=== PATIENT | female | born 1955 | race Caucasian/White ===

== ENCOUNTER 2024-07-18 06:03 | Inpatient (IN) | payer BC, MEDICARE, SELFPAY ==
[2024-07-18 01:10] VITALS: BP 168/84
[2024-07-18 01:36] LABS: % Basophils 0.2 % (0-2); % Eosinophils 0.1 % (0-6); % Immature Granulocytes 0.4 % (0-0.5); % Lymphocytes 7.6 % (20.5-51.1); % Monocytes 3.6 % (1.7-9.3); % Neutrophils 88.1 % (42.2-75.2); Absolute Immature Granulocytes 0.1 10^3/uL (0-0.05); Absolute Monocytes 0.5 10^3/uL (0.1-0.6); Absolute Neutrophils 11.9 10^3/uL (1.4-6.5); Hematocrit 40.8 % (37.0-47.0); Hemoglobin 14.3 g/dL (12.0-16.0); Mean Corpuscular Hgb 29.7 pg (27.0-31.0); Mean Corpuscular Volume 84.8 fL (81.0-99.0); Mean Platelet Volume 9.7 fL (7.4-10.4); Nucleated Red Blood Cells % 0 %; Platelet Count 345 10^3/uL (130-400); Red Blood Cell Count 4.81 10^6/uL (4.20-5.40); White Blood Cell Count 13.5 10^3/uL (4.8-10.8)
[2024-07-18 02:02] LABS: ALT (SGPT) 67 U/L (0-35); AST (SGOT) 106 U/L (14-36); Albumin 4.2 g/dl (3.5-5.0); Alkaline Phosphatase 123 U/L (38-126); Blood Urea Nitrogen 15 mg/dl (7-17); Calcium 10.4 mg/dl (8.4-10.2); Carbon Dioxide 26 mmol/L (22-30); Chloride 105 mmol/L (98-107); Glucose 243 mg/dl (70-99); Sodium 141 mmol/L (135-145); Total Bilirubin 0.9 mg/dl (0.2-1.3); eGFR > 60.00
[2024-07-18 02:21] LABS: Lipase > 4000 U/L (23-300)
[2024-07-18 02:46] VITALS: BMI 31.9
[2024-07-18] MEDS: MORPHINE SULFATE 4 MG IV (02:58)
[2024-07-18 03:05] VITALS: BP 149/65
[2024-07-18] MEDS: ZOFRAN 4 MG IV (03:05)
--- NOTE | 2024-07-18 03:33 | ED.GENMED ---
History of Present Illness
General
Chief Complaint: Abdominal Pain
Source: patient
Exam Limitations: none
Time Seen by Provider: 07/18/24 03:18
Nursing documentation reviewed up to this point in time: agreed with
History of Present Illness
History of Present Illness:
This is a 69-year-old woman with history of hypertension, hyperlipidemia who presents with generalized upper abdominal pain, moderate to severe in nature that began around 9 PM tonight associated with nausea, several episodes of vomiting. No
history of similar episodes in the past. She denies chest pain, no back pain, denies fever nor chills. She denies hematemesis.
She does admit to consuming 1 alcoholic drink tonight while at a graduation green party other than this reports rare alcohol consumption.
Her daily medications include telmisartan, rosuvastatin
Past History
Past History
ED Past Medical History: HTN and Hypercholesterolemia
ED Past Surgical History:
Social History
Tobacco: Non-smoker
Alcohol: Occasional (Rare alcohol use)
Drug: None
Personal:
Living: with family
Family History
Family History: Other (Noncontributory)
Phy Exam
Physical Exam
Physical Exam:
GENERAL: 69-year-old woman appears her stated age, awake and alert, appears in mild to moderate distress related to pain. Cooperative and easily communicative. is accompanying.
EYE: anicteric
NECK: Supple, nontender, no meningismus, no significant adenopathy.
ENT: oral mucosa is moist. No rhinorrhea.
CARDIAC: Regular rate and rhythm. no murmur.
LUNGS: Clear breath sounds bilaterally, no acute respiratory distress, no wheezes/rales/rhonchi
ABDOMEN: Rotund, soft, nondistended, moderate tenderness epigastric region, no r/g, no cvat. normoactive BS.
NEUROLOGICAL: Alert and oriented x3, no focal neuro deficits.
SKIN: Warm and dry, normal color, skin intact. No rash.
MUSCULOSKELETAL: No C/C/E. peripheral pulses are full and equal b/l. No palpable tenderness.
PSYCH: Normal and appropriate interaction.
Course
Orders/Labs/Results
Orders:
Orders
07/18/24 01:12
Electrocardiogram (*1) Urgent
Reason for Study: Abdominal Pain
EKG- Treatment ONCE
07/18/24 01:24
Complete Blood Count/With Diff Urgent
Comprehensive Metabolic Panel Urgent
Lipase Urgent
07/18/24 02:53
Morphine Sulfate 4 mg .ROUTE .STK-MED ONE
07/18/24 02:57
Morphine Sulfate 4 mg IV NOW STA
07/18/24 03:03
Ondansetron Injectable [Zofran] 4 mg .ROUTE .STK-MED ONE
07/18/24 03:04
Ondansetron Injectable [Zofran] 4 mg IV NOW STA
07/18/24 03:33
CT Abd/pelvis W Iv Cont Urgent
Comment:
Reason For Exam: acute gen upper abd pain, lipase >4000
07/18/24 04:45
HYDROmorphone [Dilaudid] 0.5 mg .ROUTE .STK-MED ONE
07/18/24 04:47
HYDROmorphone [Dilaudid] 0.5 mg IV NOW STA
Abnormal Lab Results
07/18/24
01:24
WBC 13.5 H 10^3/uL
(4.8-10.8)
Abs Immat Gran (auto) 0.1 H 10^3/uL
(0-0.05)
Absolute Neuts (auto) 11.9 H 10^3/uL
(1.4-6.5)
Absolute Lymphs (auto) 1.0 L 10^3/uL
(1.2-3.4)
Neutrophils % 88.1 H %
(42.2-75.2)
Lymphocytes % 7.6 L %
(20.5-51.1)
Glucose 243 H mg/dl
(70-99)
Calcium 10.4 H mg/dl
(8.4-10.2)
AST 106 H U/L
(14-36)
ALT 67 H U/L
(0-35)
Lipase > 4000 H* U/L
(23-300)
07/18/24 01:24
07/18/24 01:24
Vital Signs
Initial and Last Documented VS:
Initial Vital Signs
Temp Pulse Resp BP Pulse Ox
98 F 88 16 168/84 97
07/18/24 01:10 07/18/24 01:10 07/18/24 01:10 07/18/24 01:10 07/18/24 01:10
Last Documented Vital Signs
Temp Pulse Resp BP Pulse Ox
98 F 72 20 149/65 99
07/18/24 01:10 07/18/24 03:05 07/18/24 03:05 07/18/24 03:05 07/18/24 03:05
MDM/Problems Addressed
Differential Diagnosis Includes:
Patient presents with acute upper abdominal pain, persistent accompanied with nausea, several episodes of vomiting.
Labs are remarkable for significantly elevated lipase, greater than 4000 consistent with acute pancreatitis.
Concern for gallstone pancreatitis, unlikely alcohol related pancreatitis.
Glucose moderately elevated at 243. No prior history of diabetes nor impaired fasting glucose.
LFTs mildly elevated with normal T. bili and alkaline phosphatase.
IV fluids initiated, currently much more comfortable after an IV dose of morphine and Zofran.
Will check CT abdomen pelvis and plan to admit to hospitalist service.
*Radiology
Radiology exam reviewed: radiology read reviewed
*Pulse Oximetry
Patient hypoxic: no
*EKG
Interpreted by ED Provider?: Yes
Interpretation: normal
Comparison EKG: no comparison EKG present
Rate: normal
Rhythm: sinus
Lamy: normal axis
Interval: normal interval
QRS Pattern: normal QRS
Ischemia: no ischemia
*Critical Care Note
Total Time (30-74mins, 75-104mins- exclusive of procedures): Not Applicable
Update Note
Update Note:
05:00
CT shows acute pancreatitis as well as cholelithiasis and gallbladder distention.
There is also note of possible 2 mm gallstone lodged at the ampulla Vater. It is reassuring that T. bili and alk phos are normal.
Will continue IV fluids, pain medications, initiate IV antibiotics and will admit to hospitalist service.
ED Attending Note
-
Portions of this chart may have been created with voice recognition software.� Occasional wrong word or��sound alike� substitutions may have occurred due to the inherent limitations of voice recognition software.
Discharge Plan
Departure
Patient Disposition: Admit
Date of Disposition: 07/18/24
Time of Disposition: 05:02
Admit to: Med/Surg
Admit to doctor: Arielle
Presentation/result/management discussed w/ accepting MD/DO: Hospitalist
Discharge Problem:
Acute gallstone pancreatitis
Referrals:
Tay Bhardwaj DO [Family Provider] -
Interventions
Interventions:
*Risk Screen - Suicide Last Done: 07/18/24 01:10
*General Assessment Last Done: 07/18/24 01:10
*Neglect/Abuse Screening Last Done: 07/18/24 01:10
*ED- Fall Risk Assessment Last Done: 07/18/24 02:48
*ED COVID-19 Vaccine History Last Done: 07/18/24 02:48
MO-Mwfsqx-Tvzrquwrdy Assessment Last Done: 07/18/24 02:48
Discharge Date and Time
Print Language: VINCENTIAN
[2024-07-18] MEDS: DILAUDID 0.5 MG IV ×5 (04:47→22:10)
--- NOTE | 2024-07-18 05:38 | HPS.HSE ---
Family Physician
-
Family Physician: Tay Bhardwaj
Chief Complaint
-
Abdominal pain
History of Present Illness
This is a 69-year-old with past medical history of hypertension and hyperlipidemia who presents to the emergency department with episode of abdominal pain and vomiting that started in the evening.
Patient reports abrupt onset of abdominal pain that she states is localized to the mid epigastric region and radiates down to the lower quadrants bilaterally. She denies any radiation to the back. She denies any radiation into the chest. She
denies any hematochezia melena or hematemesis. Patient denies having any fevers. She denies any chills. She denies any urinary symptoms.
Patient denies any alcohol use. She denies any history of gallstones or gallbladder disease.
In the emergency department the patient was afebrile, blood pressure of 150/65 with a pulse of 72 and she was at 99% on room air.
CBC was 13.5, hemoglobin and platelets were normal. Electrolytes were all normal. BUN/creatinine were normal. Glucose slightly elevated at 250.
LFTs showed slight elevation of AST and ALT to 106 and 67 respectively. Total bilirubin was normal. Alk phos was normal.
Lipase was markedly elevated over 4000.
The CT of the abdomen pelvis revealed acute interstitial edematous pancreatitis without necrosis or organized fluid collection or vascular complication.
There is cholecystolithiasis and gallbladder distention with consideration for cholecystitis to be assessed by ultrasound. There is a suggestion of a 2 mm gallstone lodged in the ampulla elevated.
Medical History
Past Medical History
Past Medical History: Reports HTN and Hypercholesterolemia
Past Surgical History: Reports
Social History
Tobacco: Non-smoker
Alcohol: Occasional
Drug: None
Personal:
Living: With Family
Family History
Family History: Not pertinent
Allergies / Home Medications
Allergies reflects when Allergies were last updated in [facility].
Home Medications with original date entered in [facility]
Allergy/Medication List:
Allergies
Allergy/AdvReac Type Severity Reaction Status Date / Time
No Known Allergies Allergy Unverified 07/18/24 01:09
Telmisartan 40 mg tablet, 40 mg p.o. daily
Simvastatin 10 mg tablet, 10 mg p.o. daily
Review of Systems
-
History Source: Patient
Constitutional: Reports No Symptoms
EENT: Reports No Symptoms
Respiratory: Reports No Symptoms
Cardiac: Reports No Symptoms
Abdomen/GI: Reports Abdominal Pain
: Reports No Symptoms
Musculoskeletal: Reports No Symptoms
Skin: Reports No Symptoms
Neurological: Reports No Symptoms
Endocrine: Reports No Symptoms
Hematologic/Lymphatic: Reports No Symptoms
Psych: Reports No Symptoms
Physical Exam
Vital Signs
Vital Signs
Temp Pulse Resp BP Pulse Ox
98 F 72 20 149/65 99
07/18/24 01:10 07/18/24 03:05 07/18/24 03:05 07/18/24 03:05 07/18/24 03:05
Physical Exam
General: Well Developed and Pain
HEENT: NormoCephalic, Anicteric, Moist mucous membranes, Atraumatic and PERRLA
Respiratory: Clear
Cardiac: S1/S2 and Regular Rhythm
Breast: Deferred by me
GI: Soft, Non Distended, Normal Bowel Sounds and Tender (No rebound, no guarding)
Rectal: Deferred by Provider
Genito-urinary: Deferred by me
Musculoskeletal: No Clubbing, No Cyanosis and No Edema
Skin: Warm
Neuro: AO x 3 and Nonfocal/grossly intact
Hematologic/Lymphatic: No Lymphadenopathy
Psych: Calm
Laboratory Results
-
07/18/24 01:24
07/18/24 01:24
Laboratory Results
Total Bilirubin 0.9 mg/dl (0.2-1.3) 07/18/24 01:24
AST 106 U/L (14-36) H 07/18/24 01:24
ALT 67 U/L (0-35) H 07/18/24 01:24
Alkaline Phosphatase 123 U/L (38-126) 07/18/24 01:24
Lipase > 4000 U/L (23-300) H* 07/18/24 01:24
Data Reviewed
-
CT Scan: Report Reviewed by me
Lab Data: Labs Reviewed by me
Old Records: Reviewed
Impression/Plan
-
IMPRESSION:
69-year-old with acute onset of abdominal pain and vomiting, no fevers or chills and no urinary symptoms. Found to have acute pancreatitis with lipase greater than 4000. Imaging is consistent with acute pancreatitis without necrosis, fluid
collection or abscess formation. She does appear to have cholelithiasis as well as GB distention. There is prominent possible tumor or stone in the ampulla Vater but no ductal dilatation noted. Denies any significant alcohol use.
PLAN:
1. Acute pancreatitis - Suspected gall stone pancreatitis with gall stone at ampulla of vater. No necrosis. No fevers or chills. Mild transaminitis. Normal bilirubin. Do not suspect cholangitis but cannot rule out cholecystitis.
- admit to med/surg
- npo
- IV LR
- pain control and antiemetics
- no abx for now
- mrcp, ruq u/s
- GI consult
- Surgery consult
DVT PPX - lovenox sq
Code status - Full Code
[2024-07-18 06:04] VITALS: BP 165/79
[2024-07-18] MEDS: D5LR 1000 IV ×3 (07:05→19:06)
[2024-07-18] MEDS: TORADOL 15 MG IV ×2 (10:30→19:05)
[2024-07-18 10:54] VITALS: BP 152/71
--- NOTE | 2024-07-18 11:08 | CON.GI ---
Consultation
-
Date/Time Consultation Performed: 07/18/24
Performing Provider: Manuel Sosa MD
Reason for Consultation: pancreatitis
Medical History
Chief Complaint / HPI
Chief Complaint: Abdominal pain/vomiting
History of Present Illness:
The patient is a 69-year-old female past medical history as noted abdominal pain, nausea and vomiting. She had pain starting yesterday, in the epigastrium rating to the back, with associated nausea and vomiting. Upon presentation she was found to
have markedly elevated lipase as well as mildly elevated LFTs. Ultrasound showed multiple gallstones, CT scan showed gallstones with interstitial pancreatitis and calcification near the head of the pancreas and duodenum. She still having
epigastric discomfort, though possibly slightly better than yesterday. Denies any fever or chills. She has had some intermittent episodes of pain, though none severe like this. A couple of weeks ago she had vomiting and diarrhea though no
associated pain. Otherwise she does well with no significant GI complaints and denies any chest pain or shortness of breath.
Past Medical History
Past Medical History: Other (Hypertension, high cholesterol)
Past Surgical History: Other ()
Social History
Tobacco: Non-Smoker
Alcohol: Occasional
Family History
Family History: Reviewed & Not Pertinent
Allergies / Home Medications
Allergy/AdvReac Type Severity Reaction Status Date / Time
No Known Allergies Allergy Unverified 07/18/24 01:09
�Medication �Instructions �Recorded
rosuvastatin 10 mg tablet 10 mg PO DAILY 07/18/24
telmisartan 40 mg tablet 40 mg PO DAILY 07/18/24
Review of Systems
-
All other systems: A 12 pt ROS was Negative except as stated above in HPI
Vital Signs
Temp Pulse Resp BP Pulse Ox
97.9 F 74 16 152/71 97
07/18/24 06:04 07/18/24 10:54 07/18/24 10:54 07/18/24 10:54 07/18/24 10:54
Physical Exam
Exam
General: NAD
HEENT: MMM, anicteric, no lymphadenopathy
Heart: Regular, no murmurs
Lungs: CTA bilaterally
Abdomen: normal bowel sounds, soft, mild epigastric tenderness, no rebound or guarding, no masses, bruits or ascites
Extremeties: no edema
Skin: no rashes
Results
WBC 13.5 10^3/uL (4.8-10.8) H 07/18/24 01:24
Hgb 14.3 g/dL (12.0-16.0) 07/18/24 01:24
Hct 40.8 % (37.0-47.0) 07/18/24 01:24
MCV 84.8 fL (81.0-99.0) 07/18/24 01:24
Plt Count 345 10^3/uL (130-400) 07/18/24 01:24
Absolute Neuts (auto) 11.9 10^3/uL (1.4-6.5) H 07/18/24 01:24
Sodium 141 mmol/L (135-145) 07/18/24 01:24
Potassium 4.0 mmol/L (3.5-5.1) 07/18/24 01:24
Chloride 105 mmol/L (98-107) 07/18/24 01:24
Carbon Dioxide 26 mmol/L (22-30) 07/18/24 01:24
BUN 15 mg/dl (7-17) 07/18/24 01:24
Creatinine 0.8 mg/dL (0.6-1.0) 07/18/24 01:24
Calcium 10.4 mg/dl (8.4-10.2) H 07/18/24 01:24
Total Bilirubin 0.9 mg/dl (0.2-1.3) 07/18/24 01:24
AST 106 U/L (14-36) H 07/18/24 01:24
ALT 67 U/L (0-35) H 07/18/24 01:24
Alkaline Phosphatase 123 U/L (38-126) 07/18/24 01:24
Lipase > 4000 U/L (23-300) H* 07/18/24 01:24
Diagnostic Image Results:
CT:
IMPRESSION: Cholelithiasis.
There is dilation of the common bile duct, measuring up to 8.9 mm. 2 mm calcification near the junction of the common bile duct and the duodenum, and could represent a small common bile duct calculus.
Findings of pancreatitis with adjacent edema. No evidence for macroscopic pancreatic necrosis. No evidence for well-defined fluid collection.
Changes of emphysema in the visualized lower lungs.
Calcification of the aortic valve, with aortic valve incompletely included on the [id number] of this examination. Please correlate with any clinical signs or symptoms that would suggest clinically significant aortic stenosis.
US:
FINDINGS:
There are numerous small gallstones throughout the gallbladder. The gallbladder wall is thickened, measuring 5 mm. No evidence for pericholecystic edema, and the patient has a negative sonographic Hough's sign. There is comet-tail shadowing arising
from the anterior gallbladder wall, usually seen in association with adenomyomatosis.
No gross evidence for intrahepatic bile duct dilation. The common bile duct measures up to 7.2 mm, with top normal considered 7 mm in a 69-year-old. No sonographic evidence for bile duct calculus, but the most inferior aspect of the common bile duct
is not visualized, with shadowing from overlying bowel gas..
Liver length is 16.4 cm, with top normal considered 18.0 cm. Liver echogenicity appears normal with no evidence of a focal hepatic lesion. Main portal vein is patent with normal direction of flow.
The spleen appears normal with maximum dimension of 10.7 cm.
There is edema surrounding the pancreas as seen on earlier CT examination, compatible with pancreatitis. No evidence of a focal fluid collection.
The upper abdominal IVC and the abdominal aorta appear normal.
Survey views of both kidneys are obtained with no evidence of mass, calculus, or pelvicalyceal dilation. Right kidney length is 10.0 cm and left kidney length is 10.4 cm.
Prior GI Procedures:
EGD:
Colonoscopy:
Assessment / Plan
-
1. Pancreatitis: Secondary to gallstones. On my review of the CT scan it appears that the calcification may be at the ampulla or in the duodenum. Surprisingly her LFTs are not that significantly elevated today. At this point would continue
supportive care with aggressive IV fluids, bowel rest, pain control and trend labs. Will await MRI and if there is retained CBD stone then we will plan ERCP. Would consult surgery for eventual cholecystectomy.
-
-
Thank you for consultation and allowing me to participate in the patient's care. Please call the [facility] physician during the after hours with any questions or concerns.
--- NOTE | 2024-07-18 11:52 | W.PN.UPDATE ---
Update Note
Progress Note Update
H&P performed at 0538 this morning. I have reviewed the patient's chart and personally evaluated her in the ED.
69-year-old female with hypertension and hyperlipidemia that presented to the hospital with abdomen pain and vomiting that started yesterday evening. Upon arrival AFVSS. CBC with leukocytosis of 13.5, AST 106, ALT 67 with normal bilirubin and alk
phos. Serum lipase was >4000. CT A/P with IV contrast showed acute interstitial edematous pancreatitis without necrosis or signs of organized fluid collection. Subsequently had RUQ US that showed evidence of gallbladder wall thickening though no
sonographic Hough sign. MRCP was ordered with final results pending.
On exam this morning has epigastric tenderness without any peritoneal signs. No Hough sign or RUQ tenderness elicited. Cardiopulmonary exam unremarkable. No FND, AO x 4.
Gallstone pancreatitis. CT with signs of ampullary stone. No signs of cholangitis, lower suspicion for acute cholecystitis. Will hold off on antibiotics for now. Continue with IV fluids, antiemetics and analgesics. Hematocrit goal <44% and goal
for downtrending BUN. Follow-up MRCP read. Trend LFTs. Will keep n.p.o. in case MRCP shows stone amenable to ERCP. Surgery consulted for eventual cholecystectomy
N.p.o. for now
SQ Lovenox
Full code
--- NOTE | 2024-07-18 14:35 | CON.GS ---
Consultation
-
Date/Time Consultation Performed: 07/18/24 1350
Medical History
-
Chief Complaint: epigastric pain
History of Present Illness:
Ms Aden is a 69 yo female with a h/o HTN, HLD, who presents with abdominal pain which began last night at 9pm with nausea and vomiting. She reports mild episodes of pain in the past but not this severe. Pain is mostly in the epigastrium
with radiation to the LUQ with significant tenderness on exam. She notes no active nausea since being medicated in the ED but pain which initially improved is now returning. She has been passing flatus and had 2 BM's overnight. She denies fevers or
chills. She denies bowel or bladder changes.
Past Medical History
Past Medical History: HTN, Hypercholesterolemia and Other (Obesity. No prior colonoscopy, cologuard 2 years ago)
Past Surgical History:
Social History
Tobacco: Former Smoker
Alcohol: Occasional
Personal:
Living: With Family
Family History
Family History: Cancer (Mother: ovarian ca)
Allergies / Home Medications
Allergy/AdvReac Type Severity Reaction Status Date / Time
No Known Allergies Allergy Unverified 07/18/24 01:09
�Medication �Instructions �Recorded �Confirmed �Type
rosuvastatin 10 mg tablet 10 mg PO DAILY 07/18/24 07/18/24 History
telmisartan 40 mg tablet 40 mg PO DAILY 07/18/24 07/18/24 History
Review of Systems
-
History Source: Patient and Family
All other systems: Negative unless noted
A 10 point review of systems was completed, and was negative except as per HPI.
Physical Exam
Vital Signs
Temp Pulse Resp BP Pulse Ox
97.9 F 74 16 152/71 97
07/18/24 06:04 07/18/24 10:54 07/18/24 12:00 07/18/24 10:54 07/18/24 10:54
07/17/24 07/18/24 07/19/24
06:59 06:59 06:59
Actual Weight 81.6 kg
Body Mass Index (BMI) 31.9
Lab Results
07/18/24 01:24
07/18/24 01:24
WBC 13.5 10^3/uL (4.8-10.8) H 07/18/24 01:24
Hgb 14.3 g/dL (12.0-16.0) 07/18/24 01:24
Hct 40.8 % (37.0-47.0) 07/18/24 01:24
Plt Count 345 10^3/uL (130-400) 07/18/24 01:24
Abs Immat Gran (auto) 0.1 10^3/uL (0-0.05) H 07/18/24 01:24
Neutrophils % 88.1 % (42.2-75.2) H 07/18/24 01:24
Physical Exam
General: Well Developed and Well Nourished
HEENT: Moist Mucous Membranes
Respiratory: Non Labored Respirations
GI: Soft, Non Distended, Tender (Epigastrium to LUQ) and Obese
Neuro: Awake, Alert and AO x 3
Psych: Calm
Data Reviewed
-
CT Scan: Image Personally Visualized and interpreted, Report Reviewed by me, Discussed with Physician, Discussed with Patient and Discussed with Family
MRI: Image Personally Visualized and interpreted, Report Reviewed by me, Discussed with Physician, Discussed with Patient and Discussed with Family
Labs: Labs Reviewed by me, Discussed with Physician, Discussed with Patient and Discussed with Family
Assessment / Plan
-
69 yo female with a h/o presenting with epigastric pain into the LUQ with n/v with tenderness on exam. Lipase >4k, mild transaminitis, mild leukocytosis of 13.5. CT imaging with multiple small gallstones. Focal adenomyomatosis involving
the gallbladder fundus. ?ampullary stone. MRCP demonstrating no ampullary stone, suspect passage. Labs, imaging and exam consistent with gallstone mediated pancreatitis. Do not suspect cholecystitis or cholangitis. Afebrile, stable vitals signs.
Discussed cholecystectomy as prevention of future episodes of pancreatitis which can be preformed this admission once she has clinical improvement. She is agreeable to proceeding once clinically appropriate.
--Gastroenterology following
--Analgesics/antiemetics
--IVF
--Trend labs/exams
--Eventual Lap batool this admission once pancreatitis improved/resolved, timing TBD pending clinical course
[2024-07-18 16:09] VITALS: BP 162/78; BMI 31.7
[2024-07-18] MEDS: LOVENOX SC (17:41)
[2024-07-18 23:07] VITALS: BP 141/78
[2024-07-19] MEDS: D5LR 1000 IV ×2 (03:16→10:19)
[2024-07-19] MEDS: DILAUDID 0.5 MG IV ×2 (03:17→23:06)
--- NOTE | 2024-07-19 05:46 | W.PN.GI.CBS2 ---
Today's Communication / Plan
-
Please see assessment and plan for details.
Assessment / Plan
-
1. Pancreatitis: Secondary to gallstones. On my review of the CT scan it appears that the calcification may be at the ampulla or in the duodenum, MRI is negative for CBD stone. At this point we will continue aggressive IV fluids, pain control.
Will start clear liquids, await morning labs and continue to trend. She was seen by surgery, with plan eventual cholecystectomy.
Subjective
Subjective
Date of Service: July 19, 2024
Patient feeling a bit better, still with abdominal discomfort, though overall improved, no vomiting, no fever or chills.
Objective
Data Reviewed
Laboratory Data:
Laboratory Results
Total Bilirubin 0.9 mg/dl (0.2-1.3) 07/18/24 01:24
AST 106 U/L (14-36) H 07/18/24 01:24
ALT 67 U/L (0-35) H 07/18/24 01:24
Alkaline Phosphatase 123 U/L (38-126) 07/18/24 01:24
Lipase > 4000 U/L (23-300) H* 07/18/24 01:24
Vital Signs and I&O:
Vital Signs
Temp Pulse Resp BP Pulse Ox
98.8 F 86 14 141/78 95
07/18/24 23:07 07/18/24 23:07 07/18/24 23:07 07/18/24 23:07 07/18/24 23:07
Physical Exam
Physical Exam
General: NAD
Abdomen: normal bowel sounds, soft, mild epigastric tenderness, no masses or bruits, no ascites
--- NOTE | 2024-07-19 07:28 | W.PN.HOSP.TC ---
Today's Communication/Plan
-
Start clear liquid
Starting Zosyn today
Assessment / Plan
Assessment / Plan
Impression:
69-year-old with acute onset of abdominal pain and vomiting, no fevers or chills and no urinary symptoms. Found to have acute pancreatitis with lipase greater than 4000. Imaging is consistent with acute pancreatitis without necrosis, fluid
collection or abscess formation. She does appear to have cholelithiasis as well as GB distention. There is prominent possible tumor or stone in the ampulla Vater but no ductal dilatation noted. Denies any significant alcohol use. Patient was
seen by both GI and surgery,
MRCP shows:
Focal fundal adenomyomatosis of the gallbladder.
The common bile duct is dilated, measuring up to 9 mm. No MR evidence for common bile duct calculus. Pancreatic duct appears within normal limits.
Findings of pancreatitis with edema within the pancreatic parenchyma and adjacent to the pancreas. No evidence of a well-formed collection at this time.
Minimal amount of edema adjacent to the liver and spleen in both upper quadrants.
Clear liquid diet, possible cholecystectomy this admit.
Worsening leukocytosis and low-grade fever, will start Zosyn.
Assessment/plan:
Acute pancreatitis -
Suspected gall stone pancreatitis with gall stone at ampulla of vater. No necrosis. No fevers or chills. Mild transaminitis. Normal bilirubin. Do not suspect cholangitis but cannot rule out cholecystitis.
Patient was seen by both GI and surgery,
MRCP shows:
Focal fundal adenomyomatosis of the gallbladder.
The common bile duct is dilated, measuring up to 9 mm. No MR evidence for common bile duct calculus. Pancreatic duct appears within normal limits.
Findings of pancreatitis with edema within the pancreatic parenchyma and adjacent to the pancreas. No evidence of a well-formed collection at this time.
Minimal amount of edema adjacent to the liver and spleen in both upper quadrants.
Clear liquid diet, possible cholecystectomy this admit.
07/19
Noted to have worsening leukocytosis and low-grade fever 100.2 will start Zosyn.
History of hyperlipidemia
Hold statin
CODE STATUS: Full code
DVT prophylaxis: Lovenox
Diet: Clear liquid diet
Disposition: Starting Zosyn today
Total time spent on today's encounter was 65 minutes which included time spent in counseling the patient/family regarding diagnosis and treatment plan as listed above, goals of care, and symptom management. Case was discussed with nursing staff,
specialists, and care coordinators/case management. All labs and imaging personally reviewed by me. Remainder the time spent in detailed review of previous records, lab data, imaging, and other medical provider documentation.
Anticipated Discharge: > 48 hours
Subjective/Interval History
-
Date of Service: July 19, 2024
Patient seen and examined at bedside, denies any chest pain still with abdominal discomfort, no shortness of breath but abdominal pain limit deep breathing, tolerating water and socorro thomas.
Noted to have worsening leukocytosis and low-grade fever 100.2 will start Zosyn.
Objective Data
-
Labs:
Laboratory Results
07/19/24
06:00
WBC Pending
Hgb Pending
Hct Pending
Plt Count Pending
Sodium Pending
Potassium Pending
Chloride Pending
Carbon Dioxide Pending
BUN Pending
Creatinine Pending
Glucose Pending
Calcium Pending
Total Bilirubin Pending
AST Pending
ALT Pending
Alkaline Phosphatase Pending
Vital Signs:
Vital Signs
Temp Pulse Resp BP Pulse Ox
98.8 F 86 14 141/78 95
07/18/24 23:07 07/18/24 23:07 07/18/24 23:07 07/18/24 23:07 07/18/24 23:07
I&O
07/18/24 07/19/24 07/20/24
06:59 06:59 06:59
Intake Total 1800 / 1800
Balance 1799
Physical Exam
-
General: Well Developed, Well Nourished, No Apparent Distress and Comfortable
HEENT: Normocephalic, Atraumatic, Moist Mucous Membranes, No Ptosis, PERRLA and Nose Appears Normal
Respiratory: Rales, Rhonchi and Non Labored Respirations
Cardiac: Regular Rhythm and S1/S2
Breast: Deferred by me
GI: Nondistended, Normal Bowel Sounds and Tender
Genito-urinary: No Costovertebral Tender
Musculoskeletal: No Clubbing, No Cyanosis and No Edema
Skin: Warm
Neuro: Awake, Alert, Oriented, AO x 3 and No Motor Deficits
Psych: Calm
Data Reviewed
-
Diagnostic Radiology: Image personally visualized and interpreted and Report Reviewed by me
CT Scan: Image personally visualized and interpreted and Report Reviewed by me
Ultrasound: Image personally visualized and interpreted and Report Reviewed by me
MRI: Image personally visualized and interpreted and Report Reviewed by me
Medical Tests (Nuc Med, Echo etc): Image personally visualized and interpreted and Report Reviewed by me
Labs: Labs Reviewed by me
Old Records: Reviewed
[2024-07-19 07:35] VITALS: BP 177/93
[2024-07-19] MEDS: TORADOL 15 MG IV ×3 (08:13→20:36)
[2024-07-19 08:45] LABS: % Basophils 0.1 % (0-2); % Immature Granulocytes 0.4 % (0-0.5); % Lymphocytes 5.3 % (20.5-51.1); % Monocytes 4.8 % (1.7-9.3); % Neutrophils 89.4 % (42.2-75.2); Absolute Immature Granulocytes 0.1 10^3/uL (0-0.05); Absolute Lymphocytes 0.8 10^3/uL (1.2-3.4); Absolute Monocytes 0.8 10^3/uL (0.1-0.6); Absolute Neutrophils 14.1 10^3/uL (1.4-6.5); Hematocrit 37.5 % (37.0-47.0); Hemoglobin 12.6 g/dL (12.0-16.0); Mean Corp Hgb Conc. 33.6 g/dL (33.0-37.0); Mean Corpuscular Hgb 28.8 pg (27.0-31.0); Mean Corpuscular Volume 85.8 fL (81.0-99.0); Nucleated Red Blood Cells % 0 %; Platelet Count 273 10^3/uL (130-400); Red Blood Cell Count 4.37 10^6/uL (4.20-5.40); Red Cell Dist. Width 13.3 % (11.5-14.5); White Blood Cell Count 15.8 10^3/uL (4.8-10.8)
[2024-07-19 09:31] LABS: ALT (SGPT) 31 U/L (0-35); AST (SGOT) 19 U/L (14-36); Albumin 3.3 g/dl (3.5-5.0); Alkaline Phosphatase 77 U/L (38-126); Blood Urea Nitrogen 11 mg/dl (7-17); Calcium 9.2 mg/dl (8.4-10.2); Carbon Dioxide 26 mmol/L (22-30); Chloride 105 mmol/L (98-107); Direct Bilirubin 0.3 mg/dl (0.0-0.4); Estimated Creatinine Clearance 92 ml/min; Glucose 168 mg/dl (70-99); Lipase 2439 U/L (23-300); Potassium 3.7 mmol/L (3.5-5.1); Sodium 139 mmol/L (135-145); Total Bilirubin 1.2 mg/dl (0.2-1.3); Total Protein 5.9 g/dl (6.3-8.2); eGFR > 60.00
--- NOTE | 2024-07-19 10:13 | W.PN.GS2 ---
Today's Communication / Plan
-
Awaiting for her inflammatory response to subside, will follow clinically.
Plan for cholecystectomy this admission.
Assessment / Plan
-
This is a 69-year-old female who presents with sudden onset epigastric abdominal pain found to have gallstone pancreatitis. Initial CT scan demonstrated a possible filling defect in the ampulla however MRI is negative, bilirubin normal.
No role for antibiotics at this time.
Pain control: Tylenol scheduled, Toradol as needed, Dilaudid for breakthrough.
IV fluids dropped to 75 cc/h, can titrate to urine output.
Okay to advance to a full liquid diet for lunch time if patient tolerates clear liquids for breakfast. Please add protein shakes if able.
Will plan for surgery this admission once her abdominal pain has resolved, anticipate this taking 1 to 2 days.
Serial abdominal exams
General Surgery will continue to follow.
Time Spent
Total Time Spent with Patient (in minutes): 20
Subjective Data
-
Date of Service: July 19, 2024
Interval Events:
No acute events overnight. Slept okay, still in pain but improved/controlled. Denies Nausea/Vomiting, +bowel function. Tolerating diet.
Objective Data
-
Intake and Output
07/18/24 07/19/24 07/20/24
06:59 06:59 06:59
Intake Total 1800 / 1800
Balance 1800 / 1800
Intake:
IV fluids (Total) 1800 / 1800
Other:
Number of unmeasured voidings 1
Number of approximated SMALL 1
amounts of urine
Number of approximated MODERATE 2
amounts of urine
Vital Signs
Temp Pulse Resp BP Pulse Ox
100.2 F 107 18 177/93 95
07/19/24 07:35 07/19/24 07:35 07/19/24 07:35 07/19/24 07:35 07/19/24 07:35
Lab Results
07/19/24 07:58
07/19/24 07:58
Calcium 9.2 mg/dl (8.4-10.2) 07/19/24 07:58
Total Bilirubin 1.2 mg/dl (0.2-1.3) 07/19/24 07:58
Direct Bilirubin 0.3 mg/dl (0.0-0.4) 07/19/24 07:58
AST 19 U/L (14-36) 07/19/24 07:58
ALT 31 U/L (0-35) 07/19/24 07:58
Alkaline Phosphatase 77 U/L (38-126) 07/19/24 07:58
Total Protein 5.9 g/dl (6.3-8.2) L 07/19/24 07:58
Albumin 3.3 g/dl (3.5-5.0) L 07/19/24 07:58
Physical Exam
-
GENERAL/NEURO: Awake, Alert, no distress
CHEST: Unlabored breathing on RA
ABDOMEN: Soft, tender to palpation in the epigastrium, obese
Patient has a quiroga catheter: No
Patient has a central line: No
[2024-07-19] MEDS: TYLENOL 650 MG PO ×2 (12:11→17:06)
[2024-07-19] MEDS: ZOSYN 50 IV ×3 (12:11→23:00)
--- NOTE | 2024-07-19 12:16 | CM ---
Patient seen bedside.
DX pancreatitis
Patient seen bedside.
IA completed.
Patient lives with spouse in a split level home with 4 steps to enter.
Patient independent without assistive devices.
No hx VN
PCP: [facility]
Pharmacy: [facility]
Plan: home no needs anticiapted.
[2024-07-19 15:45] VITALS: BP 154/84
[2024-07-19] MEDS: LOVENOX SC ×2 (17:06→17:18)
[2024-07-19] MEDS: PEPCID 20 MG PO (22:27)
[2024-07-19] MEDS: TYLENOL PO ×2 (23:00→23:03)
[2024-07-19 23:40] VITALS: BP 147/84
[2024-07-20] MEDS: DILAUDID 0.5 MG IV ×3 (02:36→11:03)
[2024-07-20] MEDS: TYLENOL PO (04:59)
[2024-07-20] MEDS: ZOSYN 50 IV ×4 (05:02→23:05)
[2024-07-20 07:44] LABS: Hematocrit 35.4 % (37.0-47.0); Hemoglobin 12.2 g/dL (12.0-16.0); Mean Corp Hgb Conc. 34.5 g/dL (33.0-37.0); Mean Corpuscular Hgb 29.1 pg (27.0-31.0); Mean Corpuscular Volume 84.5 fL (81.0-99.0); Mean Platelet Volume 10.3 fL (7.4-10.4); Platelet Count 266 10^3/uL (130-400); Red Blood Cell Count 4.19 10^6/uL (4.20-5.40); White Blood Cell Count 18.7 10^3/uL (4.8-10.8)
[2024-07-20 07:49] LABS: Blood Urea Nitrogen 8 mg/dl (7-17); Carbon Dioxide 26 mmol/L (22-30); Chloride 105 mmol/L (98-107); Estimated Creatinine Clearance 79 ml/min; Glucose 151 mg/dl (70-99); Lipase 584 U/L (23-300); Potassium 3.2 mmol/L (3.5-5.1); Sodium 137 mmol/L (135-145); eGFR > 60.00
[2024-07-20 07:52] VITALS: BP 175/87
--- NOTE | 2024-07-20 08:37 | W.PN.GS2 ---
Today's Communication / Plan
-
-- Will plan for surgery this admission once her abdominal pain has resolved, possible within next 24-48 hours
-- Fulls, sup shakes, NPO PM for possible batool tomorrow
-- No role for antibiotics at this time.
-- Pain control: Tylenol scheduled, Toradol as needed, Dilaudid for breakthrough.
Assessment / Plan
-
Patient is a 69 yo F p/w gallstone pancreatitis
CT scan demonstrated a possible filling defect in the ampulla however MRI is negative, bilirubin normal.
AVSS
Labs notable for elevated WBC, hypokalemia, down trending lipase
Clinical improvement though with rising WBC and continued pain. Continue to monitor for complete clinical resolution of pancreatitis prior to proceeding with cholecystectomy
-- Will plan for surgery this admission once her abdominal pain has resolved, anticipate within next 24-48 hours after pain resolved
-- Fulls, sup shakes, NPO PM for possible batool tomorrow
-- No role for antibiotics at this time.
-- Pain control: Tylenol scheduled, Toradol as needed, Dilaudid for breakthrough.
-- IVF, can titrate to urine output.
-- General Surgery will continue to follow.
Subjective Data
-
Date of Service: July 20, 2024
Improve the persistent pain. Requesting pain medication dosage increase. No nausea or vomiting. No fevers. Denies any clear attacks of prior cholecystitis or biliary colic, however, history is limited and she states that approximately 2 weeks
ago she had the 'stomach bug with abdominal pain and some diarrhea'
Objective Data
-
Intake and Output
07/19/24 07/20/24 07/21/24
06:59 06:59 06:59
Intake Total 2620 / 2620
Balance 2620 / 2620
Intake:
Oral fluids 720 / 720
IV fluids (Total) 1800 / 1800
IV piggybacks 100 / 100
Other:
Number of unmeasured voidings 1
Number of approximated SMALL 1
amounts of urine
Number of approximated MODERATE 2 3
amounts of urine
Vital Signs
Temp Pulse Resp BP Pulse Ox
98.3 F 84 12 175/87 94
07/20/24 07:52 07/20/24 07:52 07/20/24 07:52 07/20/24 07:52 07/20/24 07:52
Lab Results
07/20/24 06:47
07/20/24 06:47
Calcium 9.0 mg/dl (8.4-10.2) 07/20/24 06:47
Total Bilirubin 1.2 mg/dl (0.2-1.3) 07/19/24 07:58
Direct Bilirubin 0.3 mg/dl (0.0-0.4) 07/19/24 07:58
AST 19 U/L (14-36) 07/19/24 07:58
ALT 31 U/L (0-35) 07/19/24 07:58
Alkaline Phosphatase 77 U/L (38-126) 07/19/24 07:58
Total Protein 5.9 g/dl (6.3-8.2) L 07/19/24 07:58
Albumin 3.3 g/dl (3.5-5.0) L 07/19/24 07:58
Physical Exam
-
Gen: NAD
Abd: soft, tender in epigastrium, ND, non-peritoneal
Patient has a quiroga catheter: No
Patient has a central line: No
[2024-07-20] MEDS: PROTONIX 40 MG PO (08:40)
--- NOTE | 2024-07-20 10:21 | W.PN.HOSP.TC ---
Today's Communication/Plan
-
Possible lap batool in a.m.
Assessment / Plan
Assessment / Plan
Impression:
69-year-old with acute onset of abdominal pain and vomiting, no fevers or chills and no urinary symptoms. Found to have acute pancreatitis with lipase greater than 4000. Imaging is consistent with acute pancreatitis without necrosis, fluid
collection or abscess formation. She does appear to have cholelithiasis as well as GB distention. There is prominent possible tumor or stone in the ampulla Vater but no ductal dilatation noted. Denies any significant alcohol use. Patient was
seen by both GI and surgery,
MRCP shows:
Focal fundal adenomyomatosis of the gallbladder.
The common bile duct is dilated, measuring up to 9 mm. No MR evidence for common bile duct calculus. Pancreatic duct appears within normal limits.
Findings of pancreatitis with edema within the pancreatic parenchyma and adjacent to the pancreas. No evidence of a well-formed collection at this time.
Minimal amount of edema adjacent to the liver and spleen in both upper quadrants.
Clear liquid diet, possible cholecystectomy this admit.
Worsening leukocytosis and low-grade fever, will start Zosyn.
Assessment/plan:
Acute pancreatitis -
Suspected gall stone pancreatitis with gall stone at ampulla of vater. No necrosis. No fevers or chills. Mild transaminitis. Normal bilirubin. Do not suspect cholangitis but cannot rule out cholecystitis.
Patient was seen by both GI and surgery,
MRCP shows:
Focal fundal adenomyomatosis of the gallbladder.
The common bile duct is dilated, measuring up to 9 mm. No MR evidence for common bile duct calculus. Pancreatic duct appears within normal limits.
Findings of pancreatitis with edema within the pancreatic parenchyma and adjacent to the pancreas. No evidence of a well-formed collection at this time.
Minimal amount of edema adjacent to the liver and spleen in both upper quadrants.
Clear liquid diet, possible cholecystectomy this admit.
07/19
Noted to have worsening leukocytosis and low-grade fever 100.2 will start Zosyn.
07/20
N.p.o. after midnight for possible lap batool tomorrow.
History of hyperlipidemia
Hold statin
CODE STATUS: Full code
DVT prophylaxis: Lovenox
Diet: Clear liquid diet
Disposition: Starting Zosyn today
Total time spent on today's encounter was 65 minutes which included time spent in counseling the patient/family regarding diagnosis and treatment plan as listed above, goals of care, and symptom management. Case was discussed with nursing staff,
specialists, and care coordinators/case management. All labs and imaging personally reviewed by me. Remainder the time spent in detailed review of previous records, lab data, imaging, and other medical provider documentation.
Anticipated Discharge: 24 - 48 hours
Subjective/Interval History
-
Date of Service: July 20, 2024
Patient seen and examined at bedside, denies any chest pain still with abdominal discomfort, no shortness of breath, tolerating full liquid.
N.p.o. after midnight for possible lap batool tomorrow.
Objective Data
-
Labs:
Laboratory Results
07/20/24
06:47
WBC 18.7 H
Hgb 12.2
Hct 35.4 L
Plt Count 266
Sodium 137
Potassium 3.2 L
Chloride 105
Carbon Dioxide 26
BUN 8
Creatinine 0.7
Glucose 151 H
Calcium 9.0
Vital Signs:
Vital Signs
Temp Pulse Resp BP Pulse Ox
98.3 F 84 12 175/87 94
07/20/24 07:52 07/20/24 07:52 07/20/24 07:52 07/20/24 07:52 07/20/24 07:52
I&O
07/19/24 07/20/24 07/21/24
06:59 06:59 06:59
Intake Total 2620 / 2620
Balance 2620 / 2620
Physical Exam
-
General: Well Developed, Well Nourished, No Apparent Distress and Comfortable
HEENT: Normocephalic, Atraumatic, Moist Mucous Membranes, No Ptosis, PERRLA and Nose Appears Normal
Respiratory: Rales, Rhonchi and Non Labored Respirations
Cardiac: Regular Rhythm and S1/S2
Breast: Deferred by me
GI: Nondistended, Normal Bowel Sounds and Tender
Genito-urinary: No Costovertebral Tender
Musculoskeletal: No Clubbing, No Cyanosis and No Edema
Skin: Warm
Neuro: Awake, Alert, Oriented, AO x 3 and No Motor Deficits
Psych: Calm
Data Reviewed
-
Diagnostic Radiology: Image personally visualized and interpreted and Report Reviewed by me
CT Scan: Image personally visualized and interpreted and Report Reviewed by me
Ultrasound: Image personally visualized and interpreted and Report Reviewed by me
MRI: Image personally visualized and interpreted and Report Reviewed by me
Medical Tests (Nuc Med, Echo etc): Image personally visualized and interpreted and Report Reviewed by me
Labs: Labs Reviewed by me
Old Records: Reviewed
[2024-07-20] MEDS: KCL 40 MEQ PO (10:55)
[2024-07-20] MEDS: TYLENOL 650 MG PO ×3 (11:44→23:05)
--- NOTE | 2024-07-20 13:03 | CM ---
Chart reviewed and patient is for possible procedure tomorrow, plan is to home when stable, no needs.
Plan; Home no needs when stable.
--- NOTE | 2024-07-20 13:15 | W.PN.GI.CBS2 ---
Today's Communication / Plan
-
Going to OR tommorrow for batool
No indication for ERCP at this time
Will sign off. Please call back if needed
Assessment / Plan
-
Impression:
Gallstone pancreatitis
MRI negative for CBD stone. CT suggested calcification. LFTs normal
Subjective
Subjective
Date of Service: July 20, 2024
reports ongoing epigastric pain, relieved with pain meds
Objective
Data Reviewed
Laboratory Data:
Laboratory Results
07/20/24 06:47
07/20/24 06:47
Laboratory Results
Total Bilirubin 1.2 mg/dl (0.2-1.3) 07/19/24 07:58
AST 19 U/L (14-36) 07/19/24 07:58
ALT 31 U/L (0-35) 07/19/24 07:58
Alkaline Phosphatase 77 U/L (38-126) 07/19/24 07:58
Lipase 584 U/L (23-300) H 07/20/24 06:47
Vital Signs and I&O:
Vital Signs
Temp Pulse Resp BP Pulse Ox
98.3 F 84 12 175/87 94
07/20/24 07:52 07/20/24 07:52 07/20/24 07:52 07/20/24 07:52 07/20/24 07:52
I&O
07/19/24 07/20/24 07/21/24
06:59 06:59 06:59
Intake Total 2619 / 0
Balance 2619 / 2619
Physical Exam
Physical Exam
GI: Soft, Non Distended and Tender
[2024-07-20] MEDS: DILAUDID 1 MG IV ×2 (14:14→19:28)
[2024-07-20 15:32] VITALS: BP 141/80
[2024-07-20] MEDS: LOVENOX 40 MG SC (17:05)
[2024-07-20 23:22] VITALS: BP 164/84
[2024-07-21] MEDS: DILAUDID 1 MG IV ×3 (01:17→08:09)
[2024-07-21] MEDS: TYLENOL PO ×3 (05:02→11:16)
[2024-07-21] MEDS: ZOSYN 50 IV ×4 (05:02→22:55)
[2024-07-21 07:54] VITALS: BP 176/85
[2024-07-21 08:06] LABS: Hematocrit 35.6 % (37.0-47.0); Hemoglobin 12.3 g/dL (12.0-16.0); Mean Corp Hgb Conc. 34.6 g/dL (33.0-37.0); Mean Corpuscular Hgb 29.1 pg (27.0-31.0); Mean Corpuscular Volume 84.2 fL (81.0-99.0); Mean Platelet Volume 10.1 fL (7.4-10.4); Platelet Count 293 10^3/uL (130-400); Red Blood Cell Count 4.23 10^6/uL (4.20-5.40); Red Cell Dist. Width 12.8 % (11.5-14.5); White Blood Cell Count 16.9 10^3/uL (4.8-10.8)
[2024-07-21] MEDS: PROTONIX 40 MG PO (08:08)
[2024-07-21 08:48] LABS: Blood Urea Nitrogen 9 mg/dl (7-17); Calcium 9.1 mg/dl (8.4-10.2); Carbon Dioxide 28 mmol/L (22-30); Chloride 98 mmol/L (98-107); Estimated Creatinine Clearance 79 ml/min; Glucose 117 mg/dl (70-99); Lipase 226 U/L (23-300); Potassium 3.4 mmol/L (3.5-5.1); Sodium 134 mmol/L (135-145); eGFR > 60.00
--- NOTE | 2024-07-21 10:47 | W.PN.HOSP.TC ---
Today's Communication/Plan
-
OR today
Assessment / Plan
Assessment / Plan
Impression:
69-year-old with acute onset of abdominal pain and vomiting, no fevers or chills and no urinary symptoms. Found to have acute pancreatitis with lipase greater than 4000. Imaging is consistent with acute pancreatitis without necrosis, fluid
collection or abscess formation. She does appear to have cholelithiasis as well as GB distention. There is prominent possible tumor or stone in the ampulla Vater but no ductal dilatation noted. Denies any significant alcohol use. Patient was
seen by both GI and surgery,
MRCP shows:
Focal fundal adenomyomatosis of the gallbladder.
The common bile duct is dilated, measuring up to 9 mm. No MR evidence for common bile duct calculus. Pancreatic duct appears within normal limits.
Findings of pancreatitis with edema within the pancreatic parenchyma and adjacent to the pancreas. No evidence of a well-formed collection at this time.
Minimal amount of edema adjacent to the liver and spleen in both upper quadrants.
Clear liquid diet, possible cholecystectomy this admit.
Worsening leukocytosis and low-grade fever, will start Zosyn.
Assessment/plan:
Acute pancreatitis -
Suspected gall stone pancreatitis with gall stone at ampulla of vater. No necrosis. No fevers or chills. Mild transaminitis. Normal bilirubin. Do not suspect cholangitis but cannot rule out cholecystitis.
Patient was seen by both GI and surgery,
MRCP shows:
Focal fundal adenomyomatosis of the gallbladder.
The common bile duct is dilated, measuring up to 9 mm. No MR evidence for common bile duct calculus. Pancreatic duct appears within normal limits.
Findings of pancreatitis with edema within the pancreatic parenchyma and adjacent to the pancreas. No evidence of a well-formed collection at this time.
Minimal amount of edema adjacent to the liver and spleen in both upper quadrants.
Clear liquid diet, possible cholecystectomy this admit.
07/19
Noted to have worsening leukocytosis and low-grade fever 100.2 will start Zosyn.
07/20
N.p.o. after midnight for possible lap batool tomorrow.
07/21
For OR today.
Leukocytosis improved
Hypokalemia.
Replace potassium and continue to monitor
History of hyperlipidemia
Hold statin
CODE STATUS: Full code
DVT prophylaxis: Lovenox
Diet: Clear liquid diet
Disposition: Starting Zosyn today
Total time spent on today's encounter was 65 minutes which included time spent in counseling the patient/family regarding diagnosis and treatment plan as listed above, goals of care, and symptom management. Case was discussed with nursing staff,
specialists, and care coordinators/case management. All labs and imaging personally reviewed by me. Remainder the time spent in detailed review of previous records, lab data, imaging, and other medical provider documentation.
Anticipated Discharge: 24 - 48 hours
Subjective/Interval History
-
Date of Service: July 21, 2024
Patient seen and examined at bedside, denies any chest pain or shortness of breath, still with abdominal pain, no nausea, no vomiting, for OR today.
Objective Data
-
Labs:
Laboratory Results
07/21/24
07:19
WBC 16.9 H
Hgb 12.3
Hct 35.6 L
Plt Count 293
Sodium 134 L
Potassium 3.4 L
Chloride 98
Carbon Dioxide 28
BUN 9
Creatinine 0.7
Glucose 117 H
Calcium 9.1
Vital Signs:
Vital Signs
Temp Pulse Resp BP Pulse Ox
98.3 F 83 20 176/85 96
07/21/24 07:54 07/21/24 07:54 07/21/24 07:54 07/21/24 07:54 07/21/24 07:54
I&O
07/20/24 07/21/24 07/22/24
06:59 06:59 06:59
Intake Total 2620 / 2620 580 / 580
Balance 2620 / 2620 580 / 580
Physical Exam
-
General: Well Developed, Well Nourished, No Apparent Distress and Comfortable
HEENT: Normocephalic, Atraumatic, Moist Mucous Membranes, No Ptosis, PERRLA and Nose Appears Normal
Respiratory: Rales, Rhonchi and Non Labored Respirations
Cardiac: Regular Rhythm and S1/S2
Breast: Deferred by me
GI: Nondistended, Normal Bowel Sounds and Tender
Genito-urinary: No Costovertebral Tender
Musculoskeletal: No Clubbing, No Cyanosis and No Edema
Skin: Warm
Neuro: Awake, Alert, Oriented, AO x 3 and No Motor Deficits
Psych: Calm
Data Reviewed
-
Diagnostic Radiology: Image personally visualized and interpreted and Report Reviewed by me
CT Scan: Image personally visualized and interpreted and Report Reviewed by me
Ultrasound: Image personally visualized and interpreted and Report Reviewed by me
MRI: Image personally visualized and interpreted and Report Reviewed by me
Medical Tests (Nuc Med, Echo etc): Image personally visualized and interpreted and Report Reviewed by me
Labs: Labs Reviewed by me
Old Records: Reviewed
[2024-07-21] MEDS: TORADOL 15 MG IV ×2 (11:07→17:07)
[2024-07-21] MEDS: KCL 155 MEQ IV (11:44)
--- NOTE | 2024-07-21 15:16 | W.PN.GS2 ---
Today's Communication / Plan
-
Monitor
[facility] OR tomorrow
Assessment / Plan
-
Patient is a 69 yo F p/w gallstone pancreatitis
CT scan demonstrated a possible filling defect in the ampulla however MRI is negative, bilirubin normal.
AVSS
Labs notable for elevated WBC trending down, hypokalemia improving, lipase normalized
Clinical improvement though continues to require dilaudid for pain control
-- Will plan for surgery this admission once her abdominal pain has resolved, anticipate within next 24-48 hours after pain resolved
-- Fulls, sup shakes, NPO PM for possible batool tomorrow
-- No role for antibiotics at this time.
-- Pain control: Tylenol scheduled, Toradol as needed, Dilaudid for breakthrough.
-- IVF, can titrate to urine output.
-- General Surgery will continue to follow.
Subjective Data
-
Date of Service: July 21, 2024
AFVSS, issues with pain control yesterday requiring increased dose dilaudid. Again req'ed dilaudid this am. Reports epigastric/back pain, though feels epigastric ttp has improved. She is unsure if it's back pain from the bed and positioning. Denies
n/v
Objective Data
-
Intake and Output
07/20/24 07/21/24 07/22/24
06:59 06:59 06:59
Intake Total 2620 / 2620 580 / 580
Balance 2620 / 2620 580 / 580
Intake:
Oral fluids 720 / 720 480 / 480
IV fluids (Total) 1800 / 1800
IV piggybacks 100 / 100 100 / 100
Other:
Number of approximated MODERATE 3 3
amounts of urine
Vital Signs
Temp Pulse Resp BP Pulse Ox
98.3 F 83 20 176/85 96
07/21/24 07:54 07/21/24 07:54 07/21/24 07:54 07/21/24 07:54 07/21/24 11:38
Lab Results
07/21/24 07:19
07/21/24 07:19
Calcium 9.1 mg/dl (8.4-10.2) 07/21/24 07:19
Total Bilirubin 1.2 mg/dl (0.2-1.3) 07/19/24 07:58
Direct Bilirubin 0.3 mg/dl (0.0-0.4) 07/19/24 07:58
AST 19 U/L (14-36) 07/19/24 07:58
ALT 31 U/L (0-35) 07/19/24 07:58
Alkaline Phosphatase 77 U/L (38-126) 07/19/24 07:58
Total Protein 5.9 g/dl (6.3-8.2) L 07/19/24 07:58
Albumin 3.3 g/dl (3.5-5.0) L 07/19/24 07:58
Physical Exam
-
Gen: NAD
Abd: soft, nt, nd - dilaudid admin 60 min prior to exam
Patient has a quiroga catheter: No
Patient has a central line: No
[2024-07-21] MEDS: MAALOX 30 ML PO (15:51)
[2024-07-21 16:01] VITALS: BP 164/85
[2024-07-21] MEDS: LOVENOX SC (17:05)
[2024-07-21] MEDS: TYLENOL 650 MG PO ×2 (17:06→23:48)
[2024-07-21 23:18] VITALS: BP 165/94
[2024-07-22] VITALS (7 sets, daily range): BP systolic 146–169; BP diastolic 69–87
[2024-07-22] MEDS: TYLENOL PO ×2 (05:34→11:39)
[2024-07-22] MEDS: ZOSYN 50 IV (05:34)
--- NOTE | 2024-07-22 06:28 | PTCARENOTE ---
CHG bath completed, linens and gown changed. Pt NPO since MN
[2024-07-22] MEDS: PROTONIX PO (07:38)
[2024-07-22 08:29] LABS: Hematocrit 32.4 % (37.0-47.0); Hemoglobin 11.7 g/dL (12.0-16.0); Mean Corp Hgb Conc. 36.1 g/dL (33.0-37.0); Mean Corpuscular Hgb 29.5 pg (27.0-31.0); Mean Corpuscular Volume 81.6 fL (81.0-99.0); Mean Platelet Volume 9.8 fL (7.4-10.4); Platelet Count 291 10^3/uL (130-400); Red Blood Cell Count 3.97 10^6/uL (4.20-5.40); Red Cell Dist. Width 12.5 % (11.5-14.5); White Blood Cell Count 12.8 10^3/uL (4.8-10.8)
[2024-07-22 08:57] LABS: Blood Urea Nitrogen 11 mg/dl (7-17); Calcium 8.8 mg/dl (8.4-10.2); Carbon Dioxide 27 mmol/L (22-30); Chloride 102 mmol/L (98-107); Estimated Creatinine Clearance 69 ml/min; Glucose 89 mg/dl (70-99); Lipase 270 U/L (23-300); Sodium 136 mmol/L (135-145); eGFR > 60.00
[2024-07-22] MEDS: KCL 270 MEQ IV (10:49)
--- NOTE | 2024-07-22 11:33 | W.PN.HOSP.TC ---
Today's Communication/Plan
-
OR today.
Assessment / Plan
Assessment / Plan
Impression:
69-year-old with acute onset of abdominal pain and vomiting, no fevers or chills and no urinary symptoms. Found to have acute pancreatitis with lipase greater than 4000. Imaging is consistent with acute pancreatitis without necrosis, fluid
collection or abscess formation. She does appear to have cholelithiasis as well as GB distention. There is prominent possible tumor or stone in the ampulla Vater but no ductal dilatation noted. Denies any significant alcohol use. Patient was
seen by both GI and surgery,
MRCP shows:
Focal fundal adenomyomatosis of the gallbladder.
The common bile duct is dilated, measuring up to 9 mm. No MR evidence for common bile duct calculus. Pancreatic duct appears within normal limits.
Findings of pancreatitis with edema within the pancreatic parenchyma and adjacent to the pancreas. No evidence of a well-formed collection at this time.
Minimal amount of edema adjacent to the liver and spleen in both upper quadrants.
Clear liquid diet, possible cholecystectomy this admit.
Worsening leukocytosis and low-grade fever, will start Zosyn.
Assessment/plan:
Acute pancreatitis -
Suspected gall stone pancreatitis with gall stone at ampulla of vater. No necrosis. No fevers or chills. Mild transaminitis. Normal bilirubin. Do not suspect cholangitis but cannot rule out cholecystitis.
Patient was seen by both GI and surgery,
MRCP shows:
Focal fundal adenomyomatosis of the gallbladder.
The common bile duct is dilated, measuring up to 9 mm. No MR evidence for common bile duct calculus. Pancreatic duct appears within normal limits.
Findings of pancreatitis with edema within the pancreatic parenchyma and adjacent to the pancreas. No evidence of a well-formed collection at this time.
Minimal amount of edema adjacent to the liver and spleen in both upper quadrants.
Clear liquid diet, possible cholecystectomy this admit.
07/19
Noted to have worsening leukocytosis and low-grade fever 100.2 will start Zosyn.
5/13
N.p.o. after midnight for possible lap batool tomorrow.
07/21
For OR today.
Leukocytosis improved
07/22
For OR today
Hypokalemia.
Replace potassium and continue to monitor
History of hyperlipidemia
Hold statin
CODE STATUS: Full code
DVT prophylaxis: Lovenox
Diet: Clear liquid diet
Disposition: Starting Zosyn today
Total time spent on today's encounter was 65 minutes which included time spent in counseling the patient/family regarding diagnosis and treatment plan as listed above, goals of care, and symptom management. Case was discussed with nursing staff,
specialists, and care coordinators/case management. All labs and imaging personally reviewed by me. Remainder the time spent in detailed review of previous records, lab data, imaging, and other medical provider documentation.
Anticipated Discharge: 24 - 48 hours
Subjective/Interval History
-
Date of Service: July 22, 2024
Patient seen and examined at bedside, at bedside, denies any chest pain or shortness of breath, 2/10 abdominal pain.
For the OR today.
Objective Data
-
Labs:
Laboratory Results
07/22/24
08:11
WBC 12.8 H
Hgb 11.7 L
Hct 32.4 L
Plt Count 291
Sodium 136
Potassium 3.0 L
Chloride 102
Carbon Dioxide 27
BUN 11
Creatinine 0.8
Glucose 89
Calcium 8.8
Vital Signs:
Vital Signs
Temp Pulse Resp BP Pulse Ox
98.7 F 90 18 169/87 95
07/22/24 07:33 07/22/24 07:33 07/22/24 07:33 07/22/24 07:33 07/22/24 07:33
I&O
07/21/24 07/22/24 07/23/24
06:59 06:59 06:59
Intake Total 580 / 580 865 / 865
Balance 580 / 580 865 / 865
Physical Exam
-
General: Well Developed, Well Nourished, No Apparent Distress and Comfortable
HEENT: Normocephalic, Atraumatic, Moist Mucous Membranes, No Ptosis, PERRLA and Nose Appears Normal
Respiratory: Rales, Rhonchi and Non Labored Respirations
Cardiac: Regular Rhythm and S1/S2
Breast: Deferred by me
GI: Nondistended, Normal Bowel Sounds and Tender
Genito-urinary: No Costovertebral Tender
Musculoskeletal: No Clubbing, No Cyanosis and No Edema
Skin: Warm
Neuro: Awake, Alert, Oriented, AO x 3 and No Motor Deficits
Psych: Calm
Data Reviewed
-
Diagnostic Radiology: Image personally visualized and interpreted and Report Reviewed by me
CT Scan: Image personally visualized and interpreted and Report Reviewed by me
Ultrasound: Image personally visualized and interpreted and Report Reviewed by me
MRI: Image personally visualized and interpreted and Report Reviewed by me
Medical Tests (Nuc Med, Echo etc): Image personally visualized and interpreted and Report Reviewed by me
Labs: Labs Reviewed by me
Old Records: Reviewed
--- NOTE | 2024-07-22 13:31 | OR.RPT ---
Operative Report
Operative Report
Primary Surgeon: Alek
Assisting: Siena CHISHOLM
Pre-op Diagnosis: Biliary pancreatitis
Post-op Diagnosis: Chronic cholecystitis
Procedure Performed: Robot assisted laparoscopic cholecystectomy
Anesthesia Type: GETA
Specimen / Cultures: Gallbladder
Estimated Blood Loss: 5cc
Complications: None immediate
Operative Findings: Soft contracted somewhat intrahepatic gallbladder with fibrotic posterior plane and thickened wall with mild wall edema
Date of Surgery:� 07/22/24
Indications: This 69F developed biliary pancreatitis. MRI was negative for choledocholithiasis. After her tenderness resolved, laparoscopic cholecystectomy with robotic assist was elected.
Description of procedure: The patient was placed on the operating table in the supine position. General anesthesia was induced. A time-out was completed verifying correct patient, procedure, site, positioning, and special equipment prior to
beginning this procedure. An orogastric tube was placed. The abdomen was prepped and draped in the usual sterile fashion. A stab incision was made in left upper quadrant and the Veress needle was inserted. Proper position was confirmed by aspiration
and saline meniscus test. The abdomen was insufflated with carbon dioxide to a pressure of 12mmHg. The patient tolerated insufflation well.
A 8mm trocar was then inserted above the umbilicus through the existing hernia defect. The laparoscope was inserted and the abdomen inspected. No injuries from initial trocar placement or Veress needle insertion were noted. Additional 8mm trocars
were then inserted in the following locations: two in the right lower quadrant and to the left of the umbilicus and just above. The abdomen was inspected and no abnormalities were found. The table was placed in the reverse Trendelenburg position
with the right side up. The dome of the gallbladder was grasped with an atraumatic grasper and retracted over the dome of the liver. The infundibulum was then grasped with an atraumatic grasper and retracted toward the right lower quadrant. This
maneuver exposed Calot�s triangle. The gallbladder was somewhat contracted and some dense adhesions to the omentum were noted and taken down with blunt sweeps and electrocautery. The peritoneum overlying the gallbladder infundibulum was then incised
and the cystic duct and cystic artery identified and circumferentially dissected so that a clear view of the liver was achieved through a window between the cystic duct an cystic artery. At this time, the only two structures going into the
gallbladder were the cystic artery and cystic duct. The common duct was identified with ICG and protected.
The cystic duct was then doubly clipped and divided. The cystic artery was controlled with bipolar and divided. The gallbladder was then dissected from its peritoneal attachments by electrocautery. The gallbladder was removed using an endoscopic
retrieval bag placed through the umbilical port. The gallbladder was passed off the table as a specimen. The gallbladder fossa was closely inspected. There was no evidence of bleeding from the gallbladder fossa or cystic artery or leakage of the
bile from the cystic duct stump. The umbilical trocar site was closed at the fascial level with 2-0 PDS. Secondary trocars were removed under direct vision and noted to be hemostatic. The abdomen was allowed to collapse. The skin was closed with
subcuticular sutures of 4-0 monocryl and topical skin adhesive. The orogastric tube was removed.
The patient tolerated the procedure well and was taken to the postanesthesia care unit in stable condition.
[2024-07-22] MEDS: ZOSYN IV (13:37)
--- NOTE | 2024-07-22 14:50 | CM ---
Chart reviewed. OR today
Plan: Home, no needs when stable
--- NOTE | 2024-07-22 17:13 | W.DCSUMMARY ---
Addendum entered and electronically signed by Amna Carty MD 08/02/24 07:23:
Acute blood loss anemia
07/18 Hgb 14.3
07/22 Hgb 11.7
Original Note:
Discharge Summary
Discharge Data
Date of Admission: 07/18/24
Date of Discharge: 07/22/24
-
Pending Results: No
Hospital Course
Hospital course
69-year-old with acute onset of abdominal pain and vomiting, no fevers or chills and no urinary symptoms. Found to have acute pancreatitis with lipase greater than 4000. Imaging is consistent with acute pancreatitis without necrosis, fluid
collection or abscess formation. She does appear to have cholelithiasis as well as GB distention. There is prominent possible tumor or stone in the ampulla Vater but no ductal dilatation noted. Denies any significant alcohol use. Patient was
seen by both GI and surgery,
MRCP shows:
Focal fundal adenomyomatosis of the gallbladder.
The common bile duct is dilated, measuring up to 9 mm. No MR evidence for common bile duct calculus. Pancreatic duct appears within normal limits.
Findings of pancreatitis with edema within the pancreatic parenchyma and adjacent to the pancreas. No evidence of a well-formed collection at this time.
Minimal amount of edema adjacent to the liver and spleen in both upper quadrants.
Clear liquid diet, possible cholecystectomy this admit.
Worsening leukocytosis and low-grade fever, will start Zosyn.
S/P lab choly, will be discharged on Augmentin.
During hospitalization patient was treated from the following
Acute pancreatitis -
Suspected gall stone pancreatitis with gall stone at ampulla of vater. No necrosis. No fevers or chills. Mild transaminitis. Normal bilirubin. Do not suspect cholangitis but cannot rule out cholecystitis.
Patient was seen by both GI and surgery,
MRCP shows:
Focal fundal adenomyomatosis of the gallbladder.
The common bile duct is dilated, measuring up to 9 mm. No MR evidence for common bile duct calculus. Pancreatic duct appears within normal limits.
Findings of pancreatitis with edema within the pancreatic parenchyma and adjacent to the pancreas. No evidence of a well-formed collection at this time.
Minimal amount of edema adjacent to the liver and spleen in both upper quadrants.
Clear liquid diet, possible cholecystectomy this admit.
07/19
Noted to have worsening leukocytosis and low-grade fever 100.2 will start Zosyn.
07/20
N.p.o. after midnight for possible lap batool tomorrow.
07/21
For OR today.
Leukocytosis improved
07/22
For OR today
S/P lab choly, will Dc today.
Hypokalemia.
Replace potassium and continue to monitor
History of hyperlipidemia
Hold statin
CODE STATUS: Full code
DVT prophylaxis: Lovenox
Diet: Clear liquid diet
Disposition: dc home today
Total time spent on today's encounter was 40 minutes which included time spent in counseling the patient/family regarding diagnosis and treatment plan as listed above, goals of care, and symptom management. Case was discussed with nursing staff,
specialists, and care coordinators/case management. All labs and imaging personally reviewed by me. Remainder the time spent in detailed review of previous records, lab data, imaging, and other medical provider documentation.
Anticipated Discharge: Today
Discharge Plan
-
Patient Disposition: Home (Routine Discharge)
Discharge Diagnosis/Procedures: Acute pancreatitis
Focal fundal adenomyomatosis of the gallbladder.
Condition: Good
Diet: Low Fat
Activity: As tolerated
Instructions: Cholecystectomy - Discharge instructions
Referrals:
James Gaston MD [Active] - in two to four weeks
Tay Bhardwaj DO [Family Provider] -
Prescriptions:
New
acetaminophen 325 mg Tablet
650 mg PO Q6 PRN (Reason: mild pain) Qty: 0 0RF
pantoprazole 40 mg Tablet,Delayed Release (Dr/Ec)
40 mg PO DAILY 30 Days Qty: 30 0RF
amoxicillin-pot clavulanate 875-125 mg tablet
1 tab PO Q8H 5 Days Qty: 15 0RF
ketorolac 10 mg tablet
10 mg PO Q6H PRN (Reason: moderate pain) 5 Days Qty: 20 0RF
Continued
telmisartan 40 mg Tablet
40 mg PO DAILY
rosuvastatin 10 mg Tablet
10 mg PO DAILY
Discharge Orders:
Discharge Patient (As Directed); Ordered 07/22/24
Ordered By: Amna Carty
Discharge Date and Time
Print Language: ARGENTINE
--- NOTE | 2024-07-22 19:06 | PTCARENOTE ---
Pt ate dinner and is drinking fluids - tolerating well. Pain under control - does not want any pain medication at this time. Ambulatory to bathroom and voided. Pt motivated to go home. Taken home by and daughter.
--- NOTE | 2024-07-27 15:11 | PN.CDI ---
CDI
- -
CDI:
Physician Documentation Request
Admit Date: 07/18/24 06:03
Dear Doctor Carloz,
Patient admitted with acute pancreatitis and cholecystis s/p robot assisted laparoscopic cholecystectomy.
07/18 Hgb 14.3
07/22 Hgb 11.7
Based on the above, please clarify in your note which of the following is the most likely diagnosis you are evaluating, monitoring and/or treating?
Acute blood loss anemia
Insignificant abnormal lab finding
Other
Use of terms such as suspected, likely, concern for, or probable (associated with a specific diagnosis that is being evaluated, monitored, or treated as if it exists) are acceptable and can be coded in the inpatient setting, when documented at the
time of discharge.
Thank you,
Ambar PERKINSN,RN,CCDS
CDI Specialist
Available via [place] text
Please use your independent medical judgment in providing your response.
== END 2024-07-22 19:07 | disposition home or self-care (01) | DRG 418 ==
LOC: 1 ACUTE 06:03
PROVIDERS: Surgery; ADMITTING PHYSICIAN Internal Medicine; ATTENDING PHYSICIAN General Practice; CONSULT PHYSICIAN Internal Medicine Gastroenterology; EMERGENCY PHYSICIAN Emergency Medicine; FAMILY PHYSICIAN Family Medicine; OTHER PHYSICIAN Surgery
PROC: 0FT44ZZ Resection of Gallbladder, Percutaneous Endoscopic Approach (ICD-10-PCS; 2024-07-22)
DX: K85.10 Biliary acute pancreatitis without necrosis or infection (principal); D62 Acute posthemorrhagic anemia; K80.10 Calculus of gallbladder with chronic cholecystitis without obstruction; E87.6 Hypokalemia; K82.8 Other specified diseases of gallbladder; Z87.891 Personal history of nicotine dependence; J43.9 Emphysema, unspecified; Z79.899 Other long term (current) drug therapy
CPT/HCPCS: 88304; 74177; 74181; 76700; 80048; 80053; 80076; 83690; 85025; 85027; 93005; 96374; 96375; 99285; Q9967